=== PATIENT | male | born 1975 | race Caucasian/White ===

== ENCOUNTER 2017-12-14 10:01 | Emergency (ER) | payer BC ==
[~2017-12-14] VITALS: Ht 190.5 cm; Wt 121.6 kg
[~2017-12-14 10:01] MED LIST: CYCL10 PO; HYDACE5 PO; NAPR500 PO
[2017-12-14] MEDS ORDERED: ASPI81CH (10:25)
[2017-12-14 10:41] LABS: BASOPHILS ABSOLUTE AUTO 0.06 K/mm3 (0.00-0.23); BASOPHILS PERCENT AUTO 1 % (0-2); EOSINOPHILS ABSOLUTE AUTO 0.33 K/mm3 (0.00-0.68); EOSINOPHILS PERCENT AUTO 3 % (0-6); Hematocrit 51.3 % (37.0-53.0); Hemoglobin 17.5 g/dL (13.5-17.5); IMMATURE GRAN ABSOLUTE AUTO 0.05 K/mm3 (0.00-0.10); IMMATURE GRAN PERCENT AUTO 1 % (0-1); LYMPHOCYTES ABSOLUTE AUTO 1.72 K/mm3 (0.84-5.20); LYMPHOCYTES PERCENT AUTO 16 % (21-46); MONOCYTES ABSOLUTE AUTO 0.74 K/mm3 (0.16-1.47); MONOCYTES PERCENT AUTO 7 % (4-13); Mean Corpuscular HGB 31.3 pg (26.0-34.0); Mean Corpuscular HGB Conc 34.1 g/dL (31.5-36.5); Mean Corpuscular Volume 92 fL (80-100); NEUTROPHILS ABSOLUTE AUTO 7.83 K/mm3 (1.96-9.15); NEUTROPHILS PERCENT AUTO 73 % (41-73); Platelet Count 314 K/mm3 (150-400); RDW Coefficient Variation 14.6 % (11.7-14.2); RDW Standard Deviation 49.2 fL (35.1-46.3); White Blood Cell Count 10.73 K/mm3 (4.00-11.30)
[2017-12-14 10:55] LABS: Alanine Aminotransfer (ALT/SGP 94 U/L (12-78); Albumin, Blood 3.8 g/dL (3.4-5.0); Albumin/Globulin Ratio 0.9 (0.8-1.8); Alk Phos 82 U/L (50-136); Anion Gap 9 mmol/L (6-16); Aspartate Aminotrans (AST/SGOT 40 U/L (12-37); Bilirubin, Total 0.4 mg/dL (0.1-1.0); Blood Urea Nitrogen 19 mg/dL (8-24); Bun/Creatinine Ratio 22.3 (12.0-20.0); CO2, Blood 25 mmol/L (21-32); Calcium, Blood 8.9 mg/dL (8.5-10.1); Chloride, Blood 108 mmol/L (98-108); Creatinine, Blood 0.85 mg/dL (0.60-1.20); Globulin, Blood 4.1 g/dL (2.2-4.0); Glomerular Filtration Rate >60 (60-); Glucose, Blood 108 mg/dL (70-99); Sodium, Blood 142 mmol/L (136-145); Total Protein, Blood 7.9 g/dL (6.4-8.2)
[2017-12-14 11:47] LABS: Base Excess Venous 0.2 mmol/L; Bicarbonate Venous 24.8 mmol/L (24.0-30.0); PCO2 Venous 37.7 mmHg (38-42); PO2 Venous 89.4 mmHg (38-42); pH Blood Venous 7.42 (7.34-7.37)
[2017-12-14] MEDS ORDERED: Ativan1 MG SL (12:15)
== END 2017-12-14 12:51 | disposition home or self-care (01) ==
LOC: ER 10:01
PROVIDERS: Emergency Medicine
DX: R20.8 Other disturbances of skin sensation (principal); D45 Polycythemia vera; Z79.82 Long term (current) use of aspirin
CPT/HCPCS: 36415; 80053; 82803; 85025; 93005; 93010; J2060; J7120